=== PATIENT | female | born 1930 | race Two or more races ===

== ENCOUNTER 2020-07-22 20:41 | Inpatient (IN) | payer MEDICARE, OTHER ==
[~2020-07-22] VITALS: Ht 144.8 cm; Wt 53.5 kg
--- NOTE | 2020-07-22 20:00 | NUR ---
Received an 89 yr old female from [facility] with an admitting diagnosis of UTI, generalized weakness. Hx of DM, Anemia, HTN and left eye blind. AAOx3-4 with periods of confusion. Able to follow simple commands. Lungs CTA. VSS. Needs attended. Patient has a demarco catheter on admission draining yellow urine. Patient has hx of urinary retention. Denies any pain nor any discomfort. Patient has a stage 3 sacral wound, pinkish in color with slough along the edges.Dressing intact. Dr Craven aware of patient's admission. Wound consult ordered. Fall precautions maintained. Siderails up for safety. Needs attended. Will monitor patient.
[2020-07-22 20:30] VITALS: BP 125/53
[2020-07-22] MEDS ORDERED: Z GUARD REMEDY PASTE 57 GM TUBE TOP PRN (21:00)
[2020-07-22] MEDS ORDERED: FURO20TA4 PO (21:18)
[2020-07-22] MEDS ORDERED: AMOX500C2 PO (21:18)
[2020-07-22] MEDS ORDERED: FERR325T28 PO (21:18)
[2020-07-22] MEDS ORDERED: METF-441 PO (21:18)
[2020-07-22] MEDS ORDERED: GABA-532 PO (21:49)
[2020-07-22] MEDS ORDERED: LOSA1TAB36 PO (21:49)
[2020-07-22] MEDS ORDERED: DORZ10DR11 RIGHTEYE (21:49)
[2020-07-22] MEDS ORDERED: PRED5DRO16 OP (21:49)
[2020-07-22] MEDS ORDERED: GLIM4TAB37 PO (21:49)
[2020-07-22] MEDS ORDERED: MEGE40TA19 PO (21:49)
[2020-07-22] MEDS ORDERED: ONDA-104 PO (21:49)
[2020-07-22] MEDS ORDERED: SITA100T PO (21:49)
[2020-07-22] MEDS ORDERED: ONDANSETRON HCL 4 MG TABLET PO PRN (22:15)
[2020-07-22] MEDS ORDERED: FUROSEMIDE 20 MG TABLET PO PRN (22:15)
[2020-07-23 05:01] VITALS: BP 144/69
[2020-07-23] MEDS: AMOXIcillin 500 MG CAPSULE PO SCH ×3 (05:53→21:06)
--- NOTE | 2020-07-23 06:35 | NUR ---
End of shift notes: Slept well most of the shift.No acute distress noted. VSS. Kept comfortable.Will monitor patient. Urena draining well.
[2020-07-23 07:28] LABS: BASOPHILS % (AUTO) 0.4 % (0.0-2.0); EOSINOPHILS # (AUTO) 0.1 K/uL (0.0-0.7); EOSINOPHILS % (AUTO) 1.9 % (0.0-7.0); HEMOGLOBIN 8.6 g/dL (10.9-14.3); LYMPHOCYTES # (AUTO) 2.2 K/uL (20.0-40.0); LYMPHOCYTES % (AUTO) 27.5 % (20.5-51.5); MEAN CORPUSCULAR HEMOGLOBIN 29.6 uug (24.7-32.8); MEAN CORPUSCULAR HGB CONC 33 g/dL (32.3-35.6); MEAN CORPUSCULAR VOLUME 89.9 fL (75.5-95.3); MONOCYTES # (AUTO) 0.8 K/uL (2.0-10.0); MONOCYTES % (AUTO) 9.5 % (0.0-11.0); NEUTROPHILS # (AUTO) 4.8 K/uL (1.8-8.9); NEUTROPHILS % (AUTO) 60.7 % (38.5-71.5); PLATELET COUNT (AUTO) 221 K/uL (179-408); WHITE BLOOD COUNT (AUTO) 7.9 K/uL (3.8-11.8)
[2020-07-23] MEDS ORDERED: GLIMEPIRIDE 4 MG TABLET PO SCH (07:30)
[2020-07-23 07:33] LABS: ALANINE AMINOTRANSFERASE 11 U/L (14-59); ALKALINE PHOSPHATASE 40 U/L (50-136); ASPARTATE AMINOTRANSFERASE 11 U/L (15-37); BILIRUBIN,TOTAL 0.2 mg/dL (0.2-1.0); CARBON DIOXIDE 22 mmol/L (21-32); CHLORIDE 105 mmol/L (98-107); CREATININE 1.4 mg/dL (0.6-1.3); MAGNESIUM 2.2 mg/dL (1.8-2.4); PHOSPHOROUS 4.5 mg/dL (2.5-4.9); POTASSIUM 4.8 mmol/L (3.5-5.1); TOTAL PROTEIN, SERUM 6.4 g/dL (6.4-8.2); UREA NITROGEN, BLOOD 32 mg/dL (7-18)
[2020-07-23 07:39] LABS: GLUCOSE 42 mg/dL (74-106)
[2020-07-23 08:00] VITALS: BP 147/51
[2020-07-23] MEDS ORDERED: METFORMIN HCL 850 MG TABLET PO SCH (08:00)
[2020-07-23] MEDS: HYDROCHLOROTHIAZIDE 12.5 MG CAPSULE PO SCH (08:45)
[2020-07-23] MEDS: MEGESTROL ACETATE 20 MG TABLET PO SCH (08:46)
[2020-07-23] MEDS: LOSARTAN POTASSIUM 50 MG TABLET PO SCH (08:46)
[2020-07-23] MEDS: FERROUS SULFATE 325 MG TABEC PO SCH (08:46)
[2020-07-23] MEDS ORDERED: LINAGLIPTIN 5 MG TABLET PO SCH (09:00)
[2020-07-23] MEDS ORDERED: Medication Not On Formulary EA (Losartan/Hydrochlorothiazide (Losartan-Hctz 50-12.5 Mg T PO SCH (09:00)
[2020-07-23] MEDS: DORZOLAMIDE/TIMOLOL OPHT DROP 10 ML BOTTLE RIGHTEYE SCH ×2 (09:42→17:05)
[2020-07-23] MEDS: prednisoLONE ACET 1% OPHT DROP 5 ML BOTTLE OP SCH ×4 (10:08→21:49)
--- NOTE | 2020-07-23 10:45 | NUR ---
Patient is alert, oriented x 3, not in any form of distress, on room air. She denies any pain or discomfort. Received a call from laboratory, blood glucose is 42, patient given orange juice and started her breakfast, checked blood sugar 2x every 15min with result of 61 and 73 respectively. Needs attended to promptly. Call light and frequently used items placed within patient's reach. Informed Dr. Goodwin and said hold due DM PO medications at this time, and do accu-checks ACHS. Will continue to monitor.
[2020-07-23] MEDS: BLOOD SUGAR DIAGNOSTIC 1 EACH STRIP VI SCH ×3 (11:41→20:41)
[2020-07-23 16:00] VITALS: BP 149/61
[2020-07-23] MEDS ORDERED: HYDROCODONE/APAP 5-325MG TABLET PO PRN (20:15)
[2020-07-23 20:22] VITALS: BP 155/63
[2020-07-23] MEDS: GABAPENTIN 100 MG CAPSULE PO SCH (21:06)
[2020-07-23] MEDS: GLIMEPIRIDE 2 MG TABLET PO SCH (21:07)
--- NOTE | 2020-07-23 21:58 | NUR ---
Received pt resting in bed. AAO x3, Farsi speaking, able to make needs known. No acute distress noted. C/o moderate pain on the back. Dr. Valles made aware with new order. Pt's blood sugar is 206, notified Dr. Sarmiento with new order to restart Amaryl 1 mg PO BID starting tonight. Safety measures maintained. Call light and personal items within reach. Will continue to monitor.
--- NOTE | 2020-07-23 22:21 | NUR ---
Wound care and skin care done. Pt kept clean and comfortable. Turned and repositioned, both heels offloaded. Urena catheter draining yellow colored urine. Will continue to monitor.
[2020-07-23 23:02] LABS: THYROID STIMULATING HORMONE 0.119 mIU/mL (0.358-3.740)
[2020-07-24 04:22] VITALS: BP 129/64
[2020-07-24] MEDS: AMOXIcillin 500 MG CAPSULE PO SCH ×3 (05:45→21:00)
--- NOTE | 2020-07-24 06:08 | NUR ---
@0600 Pt's blood sugar is 51, two cups of apple juice given with packets of sugar. No s/s of hypoglycemia noted. Pt remains to be AAO x3. Will recheck again. Urena catheter removed, drained with clear yellow colored urine, with order to monitor for retention. Will continue to monitor.
[2020-07-24] MEDS: BLOOD SUGAR DIAGNOSTIC 1 EACH STRIP VI SCH ×4 (06:36→20:51)
--- NOTE | 2020-07-24 06:41 | NUR ---
Rechecked blood sugar, accucheck is now 131. Will endorse accordingly to oncoming shift.
[2020-07-24 08:00] VITALS: BP 113/54
[2020-07-24] MEDS: GLIMEPIRIDE 2 MG TABLET PO SCH ×2 (08:55→17:42)
[2020-07-24] MEDS: HYDROCHLOROTHIAZIDE 12.5 MG CAPSULE PO SCH (08:55)
[2020-07-24] MEDS: FERROUS SULFATE 325 MG TABEC PO SCH (08:56)
[2020-07-24] MEDS: MEGESTROL ACETATE 20 MG TABLET PO SCH (08:56)
[2020-07-24] MEDS: LOSARTAN POTASSIUM 50 MG TABLET PO SCH (08:56)
[2020-07-24] MEDS: DORZOLAMIDE/TIMOLOL OPHT DROP 10 ML BOTTLE RIGHTEYE SCH ×2 (08:57→17:26)
[2020-07-24] MEDS: prednisoLONE ACET 1% OPHT DROP 5 ML BOTTLE OP SCH ×4 (08:57→20:48)
--- NOTE | 2020-07-24 10:30 | NUR ---
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 Noted patient was constipated, disimpacted, large hard stools, verbalized some relief, wound care to sacrum done, site cleansed, hydrogel applied, covered with folded 4x4 , encouraged pressure relief. . No voiding noted check BVI 38 ml, .Continue with bladder training.
[2020-07-24 16:00] VITALS: BP 124/50
--- NOTE | 2020-07-24 16:00 | NUR ---
Nursing- Toileted , voided 20 ml cloudy yellow urine, BVI 188 , encouraged to drink water. Per patient P.T. taken her to the bathroom during her therapy session downstair.Denies any bladder discomfort.
[2020-07-24] MEDS: GABAPENTIN 100 MG CAPSULE PO SCH (20:51)
[2020-07-24 20:55] VITALS: BP 153/84
--- NOTE | 2020-07-24 21:01 | NUR ---
Received pt resting in bed. AAO x3, Farsi speaking, able to make needs known. No acute distress noted. Denies pain/ discomfort. Due meds given as ordered. Accucheck 175. Pt noted to void 2x on incontinence pad. Skin care and wound care rendered. Dressing on sacral wound changed. Turned and repositioned. Both heels offloaded. Safety measures maintained. Call light and personal items within reach. Will continue to monitor.
[2020-07-25 04:25] VITALS: BP 107/62
[2020-07-25] MEDS: AMOXIcillin 500 MG CAPSULE PO SCH ×2 (05:59→20:38)
--- NOTE | 2020-07-25 06:26 | NUR ---
Bladder scan 101 cc. Voided x4 throughout the shift.
[2020-07-25] MEDS: BLOOD SUGAR DIAGNOSTIC 1 EACH STRIP VI SCH ×4 (06:38→20:44)
[2020-07-25 07:08] LABS: BASOPHILS % (AUTO) 0.3 % (0.0-2.0); EOSINOPHILS # (AUTO) 0.1 K/uL (0.0-0.7); EOSINOPHILS % (AUTO) 1.6 % (0.0-7.0); HEMATOCRIT 23.6 % (31.2-41.9); HEMOGLOBIN 7.9 g/dL (10.9-14.3); LYMPHOCYTES % (AUTO) 26.3 % (20.5-51.5); MEAN CORPUSCULAR HEMOGLOBIN 30.1 uug (24.7-32.8); MEAN CORPUSCULAR HGB CONC 34 g/dL (32.3-35.6); MEAN CORPUSCULAR VOLUME 89.8 fL (75.5-95.3); MONOCYTES # (AUTO) 0.8 K/uL (2.0-10.0); MONOCYTES % (AUTO) 10.9 % (0.0-11.0); NEUTROPHILS # (AUTO) 4.5 K/uL (1.8-8.9); NEUTROPHILS % (AUTO) 60.9 % (38.5-71.5); PLATELET COUNT (AUTO) 291 K/uL (179-408); RED BLOOD CELL COUNT(AUTO) 2.63 MIL/uL (3.63-4.92); WHITE BLOOD COUNT (AUTO) 7.4 K/uL (3.8-11.8)
[2020-07-25 07:13] LABS: CARBON DIOXIDE 22 mmol/L (21-32); CHLORIDE 104 mmol/L (98-107); CREATININE 1.5 mg/dL (0.6-1.3); GLUCOSE 117 mg/dL (74-106); MAGNESIUM 1.9 mg/dL (1.8-2.4); PHOSPHOROUS 4.7 mg/dL (2.5-4.9); UREA NITROGEN, BLOOD 37 mg/dL (7-18)
[2020-07-25 07:30] VITALS: BP 125/56
[2020-07-25] MEDS: FERROUS SULFATE 325 MG TABEC PO SCH (08:38)
[2020-07-25] MEDS: HYDROCHLOROTHIAZIDE 12.5 MG CAPSULE PO SCH (08:38)
[2020-07-25] MEDS: MEGESTROL ACETATE 20 MG TABLET PO SCH (08:38)
[2020-07-25] MEDS: LOSARTAN POTASSIUM 50 MG TABLET PO SCH (08:39)
[2020-07-25] MEDS: GLIMEPIRIDE 2 MG TABLET PO SCH ×2 (08:40→16:43)
[2020-07-25] MEDS: DORZOLAMIDE/TIMOLOL OPHT DROP 10 ML BOTTLE RIGHTEYE SCH ×2 (08:40→16:39)
[2020-07-25] MEDS: prednisoLONE ACET 1% OPHT DROP 5 ML BOTTLE OP SCH ×4 (08:41→20:38)
--- NOTE | 2020-07-25 11:00 | NUR ---
Patient alert, not in any form of distress, on room air. No complain of any pain or discomfort. Due medications administered and tolerated well. Assisted patient to the bathroom to have bowel movement and to void then assisted to sit on the chair. Call light and frequently used items placed within patient's reach. Informed Dr. Snyder that patient have been voiding freely with no complaints of dysuria. Per MD discontinue bladder scan.
[2020-07-25] MEDS: GLUCERNA SHAKE VANILLA 237 ML CAN PO SCH ×2 (12:10→16:40)
--- NOTE | 2020-07-25 12:20 | NUR ---
Pt will be Min A with dressing tasks. Pt will be CGA with toileting tasks. Pt will be SBA for functional transfers. Addendum: 07/25/20 at 1221 by KENTRELL TREVINO OT Amended: Links added.
--- NOTE | 2020-07-25 12:39 | NUR ---
WOUND CARE CONSULT: PT PRESENTS WITH SACRAL STAGE 3 ULCER, PRESENT ON ADMISSION. RECOMMENDATIONS MADE FOR WOUND CARE AND SKIN PROTECTION. DISCUSSED WITH NURSING STAFF. DR ALONZO MELGOZA NOTIFIED OF SURGICAL CONSULT REQUEST. IN AGREEMENT WITH PLAN OF CARE. Addendum: 07/25/20 at 1241 by LYLA ARORA RN Amended: Links added.
[2020-07-25 16:00] VITALS: BP 128/40
--- NOTE | 2020-07-25 16:40 | NUR ---
held glucerna secondary to elevated blood sugar of 443. pt asymptomatic will notify
--- NOTE | 2020-07-25 18:10 | NUR ---
Informed Dr. Snyder regarding episodes of hyperglycemia and ordered to start on Tradjenta 5 mg daily now.
[2020-07-25] MEDS: LINAGLIPTIN 5 MG TABLET PO SCH (18:44)
[2020-07-25 20:00] VITALS: BP 100/55
[2020-07-25] MEDS ORDERED: GABAPENTIN 300 MG CAPSULE PO SCH (21:00)
[2020-07-26 04:00] VITALS: BP_SYST 106; BP_SYST 139; BP_DIAS 58; BP_DIAS 92
--- NOTE | 2020-07-26 06:08 | NUR ---
Shift End Report: Vs stable. Denies any s/s of hyperglycemia. Encouraged adequate oral fluid intake as tolerated. No complaint presented all night. Continue current rehab plan of care.
[2020-07-26] MEDS: BLOOD SUGAR DIAGNOSTIC 1 EACH STRIP VI SCH ×3 (06:30→16:55)
[2020-07-26 08:00] VITALS: BP 115/55
[2020-07-26] MEDS: GLIMEPIRIDE 2 MG TABLET PO SCH ×2 (08:23→17:21)
[2020-07-26] MEDS: MEGESTROL ACETATE 20 MG TABLET PO SCH (08:23)
[2020-07-26] MEDS: HYDROCHLOROTHIAZIDE 12.5 MG CAPSULE PO SCH (08:24)
[2020-07-26] MEDS: LINAGLIPTIN 5 MG TABLET PO SCH (08:24)
[2020-07-26] MEDS: FERROUS SULFATE 325 MG TABEC PO SCH (08:24)
[2020-07-26] MEDS: LOSARTAN POTASSIUM 50 MG TABLET PO SCH (08:24)
[2020-07-26] MEDS: prednisoLONE ACET 1% OPHT DROP 5 ML BOTTLE OP SCH ×3 (08:25→16:55)
[2020-07-26] MEDS: AMOXIcillin 500 MG CAPSULE PO SCH ×2 (08:25→20:47)
[2020-07-26] MEDS: DORZOLAMIDE/TIMOLOL OPHT DROP 10 ML BOTTLE RIGHTEYE SCH ×2 (08:25→16:56)
[2020-07-26] MEDS: GLUCERNA SHAKE VANILLA 237 ML CAN PO SCH ×2 (08:26→17:22)
[2020-07-26] MEDS ORDERED: GLUCERNA SHAKE VANILLA 237 ML CAN PO SCH (09:00)
[2020-07-26 16:05] VITALS: BP 127/65
[2020-07-26] MEDS ORDERED: LINA5TAB PO (19:26)
[2020-07-26 20:06] VITALS: BP 112/55
--- NOTE | 2020-07-26 21:00 | NUR ---
Pt discharged today. VS stable. Picked up by son Kobi. All belongings accounted for. No s/s of distress. Pt declined picture to be taken of sacral wound.
== END 2020-07-26 21:30 | disposition home or self-care (01) | DRG 689 ==
PROVIDERS: ADMIT Physical Medicine & Rehabilitation Pain Medicine; ATTEND Physical Medicine & Rehabilitation Pain Medicine
DX: N39.0 Urinary tract infection, site not specified (principal); L89.153 Pressure ulcer of sacral region, stage 3; E43 Unspecified severe protein-calorie malnutrition; G93.41 Metabolic encephalopathy; N17.0 Acute kidney failure with tubular necrosis; D68.59 Other primary thrombophilia; K56.7 Ileus, unspecified; I12.9 Hypertensive chronic kidney disease with stage 1 through stage 4 chronic kidney disease, or unspecified chronic kidney disease; N18.9 Chronic kidney disease, unspecified; E11.22 Type 2 diabetes mellitus with diabetic chronic kidney disease; D63.8 Anemia in other chronic diseases classified elsewhere; R41.82 Altered mental status, unspecified; R53.1 Weakness; D50.9 Iron deficiency anemia, unspecified; E11.649 Type 2 diabetes mellitus with hypoglycemia without coma; E11.65 Type 2 diabetes mellitus with hyperglycemia; M19.90 Unspecified osteoarthritis, unspecified site; H40.9 Unspecified glaucoma; H54.40 Blindness, one eye, unspecified eye; R19.5 Other fecal abnormalities
CPT/HCPCS: 36415; 71045; 82652; 83550; 83735; 84100; 84443; 85025; J2650

== ENCOUNTER 2020-12-23 18:42 | Inpatient (IN) | payer MEDICARE, OTHER ==
[~2020-12-23] VITALS: Ht 149.9 cm; Wt 66.7 kg
[~2020-12-23 18:42] MED LIST: DORZ10DR11 RIGHTEYE; FERR325T28 PO; FURO20TA4 PO; GABA-532 PO; GLIM4TAB37 PO; LINA5TAB PO; LOSA1TAB36 PO; MEGE40TA7 PO; ONDA-104 PO; PRED5DRO16 OP; SITA100T PO
[2020-12-24] MEDS ORDERED: Z GUARD REMEDY PASTE 57 GM TUBE TOP PRN (15:15)
[2020-12-24] MEDS ORDERED: ACET-2154 PO (15:38)
[2020-12-24] MEDS ORDERED: MAGN400O6 PO (15:38)
[2020-12-24] MEDS ORDERED: ACET1TAB23 PO (15:38)
[2020-12-24] MEDS ORDERED: ENOX40DI SQ (15:38)
[2020-12-24] MEDS ORDERED: LOSA1TAB36 PO (15:38)
[2020-12-24] MEDS ORDERED: CEFT2VIA14 IV (15:38)
[2020-12-24] MEDS ORDERED: TRAZ-182 PO (15:38)
[2020-12-24] MEDS ORDERED: ESCI10TA PO (15:38)
[2020-12-24] MEDS ORDERED: METF850T PO (15:38)
[2020-12-24] MEDS ORDERED: GLIM1TAB PO (15:38)
[2020-12-24] MEDS ORDERED: INSULIN REGULAR, HUMAN 300 UNIT/3 ML VIAL SQ PRN (15:45)
[2020-12-24] MEDS ORDERED: DEXTROSE 50% 50 ML DISP.SYRIN IV PRN (15:45)
[2020-12-24] MEDS ORDERED: NUT.237L36 PO (15:58)
[2020-12-24 16:00] VITALS: BP 105/43
[2020-12-24] MEDS ORDERED: BLOOD SUGAR DIAGNOSTIC 1 EACH STRIP VI SCH ×2 (16:30)
[2020-12-24] MEDS ORDERED: prednisoLONE ACET 1% OPHT DROP 5 ML BOTTLE OP SCH (17:00)
[2020-12-24] MEDS ORDERED: MAGNESIUM HYDROXIDE 30 ML LIQUID UDC PO SCH (17:00)
[2020-12-24] MEDS ORDERED: ONDANSETRON HCL 4 MG TABLET PO PRN (17:00)
[2020-12-24] MEDS ORDERED: FUROSEMIDE 20 MG TABLET PO PRN (17:00)
--- NOTE | 2020-12-24 17:54 | NUR ---
Admitted patient to rehab unit from [facility]. Awake, alert and oriented x3. Understands and able to speak simple Danish but speaks mostly Farsi. Patient is on 2 lpm via nasal cannula. No resp distress noted. Denies chest pain or shortness of breath. No facial grimacing noted. With demarco catheter intact and patent, draining yellow urine. No hematuria noted. Patient's son works at [employer] and is involved with her care. Patient's belongings are checked and confirmed by patient. Dr. Sarmiento aware of arrival. Patient seen by Dr. Valles already. Bed low and locked. Encouraged to use call light, placed within reach. Kept comfortable. Will continue to monitor.
[2020-12-24] MEDS: GLIMEPIRIDE 2 MG TABLET PO SCH (18:13)
[2020-12-24] MEDS: GLUCERNA 1.2 1000ML LIQUID PO SCH (18:14)
--- NOTE | 2020-12-24 18:16 | NUR ---
BS at 1800- 249 mg/dl
[2020-12-24] MEDS: CEFTRIAXONE 1 G in IV DEXTROSE 5% 50 ML IV SCH (18:38)
[2020-12-24 19:50] VITALS: BP 124/46
[2020-12-24] MEDS: METFORMIN HCL 850 MG TABLET PO SCH (20:06)
[2020-12-24] MEDS: DORZOLAMIDE/TIMOLOL OPHT DROP 10 ML BOTTLE RIGHTEYE SCH (20:07)
[2020-12-24] MEDS: BLOOD SUGAR DIAGNOSTIC 1 EACH STRIP VI SCH (20:13)
[2020-12-24] MEDS: ACIDOPHILUS/BULGARICUS CHEW TAB PO SCH (20:13)
[2020-12-24] MEDS: TRAZODONE 50 MG TABLET PO SCH (20:14)
[2020-12-24] MEDS ORDERED: GABAPENTIN 100 MG CAPSULE PO SCH (21:00)
--- NOTE | 2020-12-24 22:14 | NUR ---
Patient awake alert and able to make needs known.Farsi speaking with O2 inhalation at 2LPM via NC .No s/s of distress noted.Due meds given.Iv on Right hand patent and intact.No s/s of distress noted.Urena catheter draining well with yellow urine output. Repositioned patient. Wound care provided on sacral area. Tolerated well. Continue safety measures .Will continue to monitor.
[2020-12-25] MEDS: ACETAMINOPHEN 325 MG TABLET PO PRN (00:05)
[2020-12-25 05:21] VITALS: BP 126/54
[2020-12-25] MEDS: BLOOD SUGAR DIAGNOSTIC 1 EACH STRIP VI SCH ×4 (06:33→20:27)
[2020-12-25 06:43] LABS: BASOPHILS % (AUTO) 0.4 % (0.0-2.0); EOSINOPHILS # (AUTO) 0.1 K/uL (0.0-0.7); EOSINOPHILS % (AUTO) 1.7 % (0.0-7.0); HEMATOCRIT 28.8 % (31.2-41.9); HEMOGLOBIN 9.4 g/dL (10.9-14.3); LYMPHOCYTES % (AUTO) 28.4 % (20.5-51.5); MEAN CORPUSCULAR HEMOGLOBIN 27.2 uug (24.7-32.8); MEAN CORPUSCULAR HGB CONC 33 g/dL (32.3-35.6); MEAN CORPUSCULAR VOLUME 82.9 fL (75.5-95.3); MONOCYTES # (AUTO) 0.8 K/uL (2.0-10.0); MONOCYTES % (AUTO) 11.5 % (0.0-11.0); NEUTROPHILS # (AUTO) 4.2 K/uL (1.8-8.9); PLATELET COUNT (AUTO) 263 K/uL (179-408); RED BLOOD CELL COUNT(AUTO) 3.47 MIL/uL (3.63-4.92); WHITE BLOOD COUNT (AUTO) 7.2 K/uL (3.8-11.8)
[2020-12-25 06:56] LABS: THYROID STIMULATING HORMONE 0.242 mIU/mL (0.358-3.740)
[2020-12-25 07:19] LABS: ALANINE AMINOTRANSFERASE 9 U/L (14-59); ALKALINE PHOSPHATASE 46 U/L (50-136); ASPARTATE AMINOTRANSFERASE 8 U/L (15-37); BILIRUBIN,TOTAL 0.1 mg/dL (0.2-1.0); CARBON DIOXIDE 32 mmol/L (21-32); CHLORIDE 100 mmol/L (98-107); CHOLESTEROL 142 mg/dL (<200); CREATININE 1.5 mg/dL (0.6-1.3); GLUCOSE 107 mg/dL (74-106); HDL CHOLESTEROL 30 mg/dL (40-60); MAGNESIUM 1.7 mg/dL (1.8-2.4); PHOSPHOROUS 4.2 mg/dL (2.5-4.9); POTASSIUM 4.5 mmol/L (3.5-5.1); TRIGLYCERIDES 183 MG/DL (30-150); UREA NITROGEN, BLOOD 44 mg/dL (7-18)
[2020-12-25 07:42] LABS: BAND % (MANUAL) 3 % (0-10); EOSINOPHILS % (MANUAL) 1 % (0-8); LYMPHOCYTES % (MANUAL) 17 % (20-40); MONOCYTES % (MANUAL) 11 % (2-10); MYELOCYTES % 1 % (0-0); NEUTROPHILS % (MANUAL) 67 % (42-75)
--- NOTE | 2020-12-25 07:42 | NUR ---
Awake and responsive mostly in Farsi. No respiratory distress on 2 lpm nc. No sob noted. Denies pain. Right hand IV intact and patent. Urena catheter intact and patent draining yellow urine. No hematuria or sediments noted. Bed is low and locked. Kept comfortable. Call light in reach. Will continue to monitor.
[2020-12-25 08:01] LABS: IRON, SERUM 28 ug/dL (50-175)
[2020-12-25] MEDS: GLUCERNA 1.2 1000ML LIQUID PO SCH ×2 (08:03→17:17)
[2020-12-25] MEDS: METFORMIN HCL 850 MG TABLET PO SCH ×2 (08:03→17:16)
[2020-12-25 08:15] VITALS: BP 121/36
[2020-12-25] MEDS: ESCITALOPRAM OXALATE 10 MG TABLET PO SCH (08:29)
[2020-12-25] MEDS: ACIDOPHILUS/BULGARICUS CHEW TAB PO SCH ×2 (08:29→20:17)
[2020-12-25] MEDS: LINAGLIPTIN 5 MG TABLET PO SCH (08:29)
[2020-12-25] MEDS: FERROUS SULFATE 325 MG TABEC PO SCH (08:29)
[2020-12-25] MEDS: MEGESTROL ACETATE 20 MG TABLET PO SCH (08:29)
[2020-12-25] MEDS: GLIMEPIRIDE 2 MG TABLET PO SCH ×2 (08:29→17:16)
[2020-12-25] MEDS: PREGABALIN 25 MG CAPSULE PO SCH ×2 (08:29→17:16)
[2020-12-25] MEDS: DORZOLAMIDE/TIMOLOL OPHT DROP 10 ML BOTTLE RIGHTEYE SCH ×2 (08:30→17:17)
[2020-12-25] MEDS: ENOXAPARIN SODIUM 30 MG/0.3 ML DISP.SYRIN SQ SCH (08:31)
[2020-12-25] MEDS ORDERED: MAGNESIUM OXIDE 400 MG TABLET PO ONE (10:00)
[2020-12-25] MEDS: prednisoLONE ACET 1% OPHT DROP 5 ML BOTTLE LEFTEYE SCH (12:25)
[2020-12-25] MEDS: MAGNESIUM HYDROXIDE 30 ML LIQUID UDC PO PRN (15:11)
[2020-12-25 15:37] VITALS: BP 119/58
[2020-12-25] MEDS: CEFTRIAXONE 1 G in IV DEXTROSE 5% 50 ML IV SCH (17:49)
--- NOTE | 2020-12-25 19:16 | NUR ---
Alert and oriented, able to make needs known in simple albanian. No resp distress in 2Lm via nc spo2 97-98%. No facial grimacing. Eats very well. Family was here to visit, no complaints. Safety measures in place. Call light and cell phone in reach. Endorsed accordingly.
[2020-12-25] MEDS: TRAZODONE 50 MG TABLET PO SCH (20:18)
[2020-12-25 20:23] VITALS: BP 128/71
[2020-12-26 04:28] VITALS: BP 163/65
[2020-12-26] MEDS: ACETAMINOPHEN/CODEINE 300-30 MG TABLET PO PRN (04:55)
--- NOTE | 2020-12-26 06:31 | NUR ---
Pt slept intermittently throughout the night. C/o pain around 0430H and was given Tylenol #3, tolerated well. Denies pain or SOB at this time, on 2L NC sating at 96%. Pt had 3 bowel movements during the shift. During perineal care, Mepilex on sacrum was changed and area was cleansed with NS. Tolerated all medications given. Bed is locked and in lowest position, call light within reach. No other issues or concerns at this time, will endorse to day shift.
[2020-12-26] MEDS: BLOOD SUGAR DIAGNOSTIC 1 EACH STRIP VI SCH ×5 (06:35→23:09)
[2020-12-26 07:00] LABS: CARBON DIOXIDE 35 mmol/L (21-32); CHLORIDE 99 mmol/L (98-107); CREATININE 1.5 mg/dL (0.6-1.3); GLUCOSE 98 mg/dL (74-106); MAGNESIUM 1.8 mg/dL (1.8-2.4); POTASSIUM 4.6 mmol/L (3.5-5.1); UREA NITROGEN, BLOOD 40 mg/dL (7-18)
[2020-12-26 07:35] VITALS: BP 106/48
[2020-12-26] MEDS: LINAGLIPTIN 5 MG TABLET PO SCH (08:59)
[2020-12-26] MEDS: ACIDOPHILUS/BULGARICUS CHEW TAB PO SCH ×2 (08:59→20:47)
[2020-12-26] MEDS: GLIMEPIRIDE 2 MG TABLET PO SCH ×2 (08:59→16:39)
[2020-12-26] MEDS: FERROUS SULFATE 325 MG TABEC PO SCH (08:59)
[2020-12-26] MEDS: MEGESTROL ACETATE 20 MG TABLET PO SCH (08:59)
[2020-12-26] MEDS: ESCITALOPRAM OXALATE 10 MG TABLET PO SCH (08:59)
[2020-12-26] MEDS: DORZOLAMIDE/TIMOLOL OPHT DROP 10 ML BOTTLE RIGHTEYE SCH ×2 (09:00→16:42)
[2020-12-26] MEDS: ENOXAPARIN SODIUM 30 MG/0.3 ML DISP.SYRIN SQ SCH (09:03)
[2020-12-26] MEDS: METFORMIN HCL 850 MG TABLET PO SCH (09:05)
[2020-12-26] MEDS: GLUCERNA 1.2 1000ML LIQUID PO SCH ×2 (09:05→17:12)
[2020-12-26] MEDS: prednisoLONE ACET 1% OPHT DROP 5 ML BOTTLE LEFTEYE SCH (09:06)
[2020-12-26] MEDS: PREGABALIN 25 MG CAPSULE PO SCH ×2 (09:15→16:39)
--- NOTE | 2020-12-26 14:06 | NUR ---
WOUND CARE CONSULT: PT PRESENTS WITH STAGE 3 ULCER TO SACRUM, PRESENT ON ADMISSION. RECOMMEND SURGICAL CONSULT. DR ALONZO MELGOZA NOTIFIED OF CONSULT REQUEST. RECOMMENDATIONS MADE FOR WOUND CARE AND SKIN PROTECTION. DISCUSSED WITH NURSING STAFF. PT IS ON FIRST STEP CHRISTIANO TONEY MD IN AGREEMENT WITH PLAN OF CARE. Addendum: 12/26/20 at 1408 by LYLA ARORA RN Amended: Links added.
[2020-12-26 15:51] VITALS: BP 110/42
[2020-12-26] MEDS: METFORMIN HCL 500 MG TABLET PO SCH (17:07)
[2020-12-26] MEDS: CEFTRIAXONE 1 G in IV DEXTROSE 5% 50 ML IV SCH (17:07)
--- NOTE | 2020-12-26 18:43 | NUR ---
Informed Dr. Sarmiento regarding latest blood sugar 347 and 325 for lunch and dinner respectively and her blood sugar trend. Dr. Sarmiento ordered to increase Glimepiride AM dose to 4mg and keep the PM dose 2mg.
--- NOTE | 2020-12-26 20:00 | NUR ---
Received patient awake in bed. a/o to self, farsi speaking, but able to make simple needs known. vs wnl. No s/s of pain or discomfort. No facial grimace noted. on o2 1l nc sating 98%. On air mattress. F/c intact and patent, draining to gravity. Heplock noted to right hand #24 gauge. Bed alarm on. Call light in reach. All needs attended. Will continue to monitor and assess.
[2020-12-26 20:18] VITALS: BP 102/57
[2020-12-26] MEDS: TRAZODONE 50 MG TABLET PO SCH (20:47)
--- NOTE | 2020-12-27 02:36 | NUR ---
Patient awake in bed. very confused and disoriented, yelling at staff. When spoken to in farsi, patient is confused and saying that no one is feeding her breakfast. Unable to redirect, patient becomes easily agitated. Offered food, continues to yell at staff. bed alarm on. Will continue to monitor and assess.
[2020-12-27 04:18] VITALS: BP 144/54
[2020-12-27] MEDS: BLOOD SUGAR DIAGNOSTIC 1 EACH STRIP VI SCH ×4 (06:21→20:38)
[2020-12-27 06:38] LABS: CREATININE 1.3 mg/dL (0.6-1.3); POTASSIUM 4.9 mmol/L (3.5-5.1)
[2020-12-27] MEDS: ESCITALOPRAM OXALATE 10 MG TABLET PO SCH (09:46)
[2020-12-27] MEDS: METFORMIN HCL 500 MG TABLET PO SCH ×2 (09:46→17:01)
[2020-12-27] MEDS: ACIDOPHILUS/BULGARICUS CHEW TAB PO SCH ×2 (09:46→20:37)
[2020-12-27] MEDS: MEGESTROL ACETATE 20 MG TABLET PO SCH (09:46)
[2020-12-27] MEDS: LINAGLIPTIN 5 MG TABLET PO SCH (09:46)
[2020-12-27] MEDS: FERROUS SULFATE 325 MG TABEC PO SCH (09:46)
[2020-12-27] MEDS: PREGABALIN 25 MG CAPSULE PO SCH (09:46)
[2020-12-27] MEDS: GLUCERNA 1.2 1000ML LIQUID PO SCH (09:47)
[2020-12-27] MEDS: GLIMEPIRIDE 4 MG TABLET PO SCH (09:47)
[2020-12-27] MEDS: ENOXAPARIN SODIUM 30 MG/0.3 ML DISP.SYRIN SQ SCH (09:48)
[2020-12-27] MEDS: DORZOLAMIDE/TIMOLOL OPHT DROP 10 ML BOTTLE RIGHTEYE SCH ×2 (09:59→17:05)
[2020-12-27] MEDS: PROTEIN SUPPLEMENT (PROSTAT) 30 ML LIQUID PO SCH (10:00)
[2020-12-27] MEDS: prednisoLONE ACET 1% OPHT DROP 5 ML BOTTLE LEFTEYE SCH (10:00)
--- NOTE | 2020-12-27 13:24 | NUR ---
Patient c/o of on/off pain on the soles of her feet, yesterday it was the left and today the right. Pain comes and goes away right away. Per rehab pt is still able to ambulate. Able to move both feet. informed Dr. Panchal and he said to ask Dr. Valles but also to increase Lyrica to 50mg BID, noted and carried out. Dr. Valles made aware and waiting for reply.
--- NOTE | 2020-12-27 14:47 | NUR ---
Per mayuri Guerra to increase Lyrica to 50mg BID. Patient made aware.
--- NOTE | 2020-12-27 15:32 | NUR ---
Spoke to patient's son Kobi and given update on condition, incl medication dosage increase. He was appreciative.
[2020-12-27 16:14] VITALS: BP 139/60
[2020-12-27] MEDS: GLIMEPIRIDE 2 MG TABLET PO SCH (17:01)
[2020-12-27] MEDS: PREGABALIN 50 MG CAPSULE PO SCH (17:05)
[2020-12-27] MEDS: GLUCERNA SHAKE 237 ML CAN PO SCH (17:42)
[2020-12-27] MEDS: CEphaleXIN 250 MG CAPSULE PO SCH (18:40)
[2020-12-27] MEDS: ACETAMINOPHEN/CODEINE 300-30 MG TABLET PO PRN (18:46)
--- NOTE | 2020-12-27 19:02 | NUR ---
Alert and oriented no resp distress on 1 lpm via nc 96%. Due meds given and tolerated. Spoke to both sons today and expressed concern regarding their mom's appetite. Informed them that she is on appetite stimulant, asked Dr. Valles if he can reduce dise per sons' request but he said not at this time. Both sons made aware. Due meds given and tolerated. Wound dressing changed. No adverse reactions with atb use. Safety measures in place. Call light light in reach.
--- NOTE | 2020-12-27 19:30 | NUR ---
RECEIVED PT AWAKE, ALERT AND ORIENTEDX3. PT IN NO ACUTE DISTRESS. PT CAN MAKE HER NEEDS KNOWN. SAFETY AND COMFORT PROVIDED. WILL CONTINUE TO MONITOR.
--- NOTE | 2020-12-27 19:31 | NUR ---
INDIVIDUALIZED PLAN OF CARE
[2020-12-27] MEDS: TRAZODONE 50 MG TABLET PO SCH (20:37)
[2020-12-27 21:01] VITALS: BP 130/45
--- NOTE | 2020-12-27 22:00 | NUR ---
NOTIFY CLOCK AND WATCH ASSEMBLER REGARDING PT INSULIN 251 IF PT NEEDED INSULIN SLIDING SCALE. PER NO INSULIN SLIDING SCALE NEEDED SINCE PT IS GETTING ORAL DIABETIC MEDICATION. PT IN NO ACUTE DISTRESS. WILL CONTINUE TO MONITOR.
[2020-12-28] VITALS: BP 111/51
[2020-12-28 04:09] VITALS: BP 119/42
--- NOTE | 2020-12-28 06:21 | NUR ---
PT SLEPT INTERMITTENTLY. PT IN NO ACUTE DISTRESS. PRESCRIBED MEDICATION GIVEN AND PT TOLERATED IT WELL. PT COOPERATIVE WITH CARE. PT TURNED AND REPOSITIONED. DRESSING CHANGED. SAFETY AND COMFORT PROVIDED. ALL NEEDS ARE MET. WILL ENDORSE TO INCOMING NURSE FOR CONTINUITY OF CARE.
[2020-12-28] MEDS: BLOOD SUGAR DIAGNOSTIC 1 EACH STRIP VI SCH ×4 (06:38→20:39)
--- NOTE | 2020-12-28 07:30 | NUR ---
Received awake and responsive. No respiratory distress. On 1Lpm via nc tolerated s092 99%. No facial grimacing noted. FC intact and patent draining yellow urine. No hematuria or sediments noted. Safety measures in place. Call light in reach. Will continue to monitor.
[2020-12-28 07:35] VITALS: BP 103/58
[2020-12-28] MEDS: GLIMEPIRIDE 4 MG TABLET PO SCH (08:00)
[2020-12-28] MEDS: METFORMIN HCL 500 MG TABLET PO SCH ×2 (08:00→17:09)
[2020-12-28] MEDS: ACIDOPHILUS/BULGARICUS CHEW TAB PO SCH ×2 (08:32→20:35)
[2020-12-28] MEDS: MEGESTROL ACETATE 20 MG TABLET PO SCH (08:32)
[2020-12-28] MEDS: GLUCERNA SHAKE 237 ML CAN PO SCH ×2 (08:33→17:12)
[2020-12-28] MEDS: CEphaleXIN 250 MG CAPSULE PO SCH ×3 (08:33→17:09)
[2020-12-28] MEDS: prednisoLONE ACET 1% OPHT DROP 5 ML BOTTLE LEFTEYE SCH (08:33)
[2020-12-28] MEDS: LINAGLIPTIN 5 MG TABLET PO SCH (08:33)
[2020-12-28] MEDS: FERROUS SULFATE 325 MG TABEC PO SCH (08:33)
[2020-12-28] MEDS: PREGABALIN 50 MG CAPSULE PO SCH ×2 (08:33→17:09)
[2020-12-28] MEDS: ESCITALOPRAM OXALATE 10 MG TABLET PO SCH (08:33)
[2020-12-28] MEDS: PROTEIN SUPPLEMENT (PROSTAT) 30 ML LIQUID PO SCH (08:34)
[2020-12-28] MEDS: DORZOLAMIDE/TIMOLOL OPHT DROP 10 ML BOTTLE RIGHTEYE SCH ×2 (08:34→17:09)
[2020-12-28] MEDS: ENOXAPARIN SODIUM 30 MG/0.3 ML DISP.SYRIN SQ SCH (08:38)
--- NOTE | 2020-12-28 08:38 | NUR ---
DM Medications held due to blood sugar 77 mg/dl this am. aware.
--- NOTE | 2020-12-28 09:13 | NUR ---
Patient tolerated rehab on room air. Spo2 after walking with PT 96% RA.
--- NOTE | 2020-12-28 10:46 | NUR ---
Patient tolerating room air spo 98% but she requested for oxygen to be put on. Denies pain. Breathing even and non labored. No sob noted. Put on 0.5 Lpm via nc, spo2 noted 98%. Will continue to monitor.
[2020-12-28] MEDS: MAGNESIUM HYDROXIDE 30 ML LIQUID UDC PO PRN (11:21)
[2020-12-28 15:34] VITALS: BP 106/49
[2020-12-28] MEDS: GLIMEPIRIDE 2 MG TABLET PO SCH (17:08)
--- NOTE | 2020-12-28 19:15 | NUR ---
Sleeping but arousable to stimuli. In no acute distress. FC intact and patent, draining yellow urine. No facial grimacing noted. Wound dressing done as ordered. Bed is low and locked. Needs attended. Endorsed accordingly.
[2020-12-28 20:15] VITALS: BP 121/49
--- NOTE | 2020-12-28 20:30 | NUR ---
INTERDISCIPLINARY TEAM CONFERENCE
[2020-12-28] MEDS: TRAZODONE 50 MG TABLET PO SCH (20:36)
[2020-12-29 04:18] VITALS: BP 161/76
[2020-12-29] MEDS: BLOOD SUGAR DIAGNOSTIC 1 EACH STRIP VI SCH ×4 (05:40→20:44)
[2020-12-29 06:10] VITALS: BP 129/73
--- NOTE | 2020-12-29 06:21 | NUR ---
Shift End Report: Vs stable. Slept well. No significant event reported all night. All needs attended and met. Continue current rehab plan of care.
--- NOTE | 2020-12-29 07:30 | NUR ---
START OF SHIFT: received change of shift report, pt a/ox3, Farsi speaking, understands some Cambodian. pt has sacral wound, voids via demarco, on 0.5L O2 NC PRN. Pt ambulates with walker, IV access on right hand 24g saline lock. pt in bed resting call light within reach, on air mattress, will continue to monitor.
[2020-12-29] MEDS: FERROUS SULFATE 325 MG TABEC PO SCH (08:52)
[2020-12-29] MEDS: PREGABALIN 50 MG CAPSULE PO SCH ×2 (08:52→17:43)
[2020-12-29] MEDS: MEGESTROL ACETATE 20 MG TABLET PO SCH (08:53)
[2020-12-29] MEDS: ENOXAPARIN SODIUM 30 MG/0.3 ML DISP.SYRIN SQ SCH (08:53)
[2020-12-29] MEDS: METFORMIN HCL 500 MG TABLET PO SCH ×2 (08:53→17:43)
[2020-12-29] MEDS: ACIDOPHILUS/BULGARICUS CHEW TAB PO SCH ×2 (08:53→20:40)
[2020-12-29] MEDS: LINAGLIPTIN 5 MG TABLET PO SCH (08:53)
[2020-12-29] MEDS: ESCITALOPRAM OXALATE 10 MG TABLET PO SCH (08:54)
[2020-12-29] MEDS: CEphaleXIN 250 MG CAPSULE PO SCH ×3 (08:54→17:47)
[2020-12-29] MEDS: GLUCERNA SHAKE 237 ML CAN PO SCH ×2 (08:55→17:43)
[2020-12-29] MEDS: prednisoLONE ACET 1% OPHT DROP 5 ML BOTTLE LEFTEYE SCH (08:56)
[2020-12-29] MEDS: PROTEIN SUPPLEMENT (PROSTAT) 30 ML LIQUID PO SCH (08:57)
[2020-12-29] MEDS: DORZOLAMIDE/TIMOLOL OPHT DROP 10 ML BOTTLE RIGHTEYE SCH ×2 (08:57→17:48)
[2020-12-29] MEDS: GLIMEPIRIDE 4 MG TABLET PO SCH (08:58)
[2020-12-29 14:58] VITALS: BP 117/37
[2020-12-29] MEDS: GLIMEPIRIDE 2 MG TABLET PO SCH (17:43)
--- NOTE | 2020-12-29 18:30 | NUR ---
END OF SHIFT: pt in bed resting, healthy appetite, awake alert and oriented x4, Farsi speaking, understands Finnish. pt has wound on sacrum, dressing clean dry and intact, on 0.5L O2 NC. pt ambulates with walker with physical therapy. pt voids via demarco catheter, IV on right hand 24g saline lock. bed in low and locked position, call light within reach, will endorse to oncoming nurse.
--- NOTE | 2020-12-29 19:50 | NUR ---
Sleeping comfortably during initial rounds. No s/s of respiratory distress. Continuos O2 at 0.5L/min via NC, saturating 96% at this time. HL on RH intact, no s/s of infiltration noted. Safety measures and fall prevention maintained. Continue care as planned.
[2020-12-29 20:00] VITALS: BP 116/41
--- NOTE | 2020-12-29 20:10 | NUR ---
Visited by family friend at this time.
[2020-12-29] MEDS: TRAZODONE 50 MG TABLET PO SCH (20:40)
[2020-12-29] MEDS: ACETAMINOPHEN 325 MG TABLET PO PRN (23:15)
[2020-12-30 04:00] VITALS: BP 143/49
--- NOTE | 2020-12-30 05:50 | NUR ---
Shift End Report: Been a good night with this patient. Slept well. No complaint presented. All needs anticipated and attended. Continue current rehab plan of care.
[2020-12-30] MEDS: BLOOD SUGAR DIAGNOSTIC 1 EACH STRIP VI SCH ×4 (06:04→20:08)
[2020-12-30] MEDS: METFORMIN HCL 500 MG TABLET PO SCH ×2 (07:38→17:04)
[2020-12-30] MEDS: GLIMEPIRIDE 4 MG TABLET PO SCH (07:38)
[2020-12-30 07:50] VITALS: BP 110/55
[2020-12-30] MEDS: LINAGLIPTIN 5 MG TABLET PO SCH (08:03)
[2020-12-30] MEDS: CEphaleXIN 250 MG CAPSULE PO SCH ×3 (08:03→16:10)
[2020-12-30] MEDS: ACIDOPHILUS/BULGARICUS CHEW TAB PO SCH ×2 (08:03→20:03)
[2020-12-30] MEDS: FERROUS SULFATE 325 MG TABEC PO SCH (08:03)
[2020-12-30] MEDS: ESCITALOPRAM OXALATE 10 MG TABLET PO SCH (08:03)
[2020-12-30] MEDS: ENOXAPARIN SODIUM 30 MG/0.3 ML DISP.SYRIN SQ SCH (08:03)
[2020-12-30] MEDS: PREGABALIN 50 MG CAPSULE PO SCH ×2 (08:03→16:10)
[2020-12-30] MEDS: prednisoLONE ACET 1% OPHT DROP 5 ML BOTTLE LEFTEYE SCH (08:04)
[2020-12-30] MEDS: GLUCERNA SHAKE 237 ML CAN PO SCH ×2 (08:04→16:10)
[2020-12-30] MEDS: PROTEIN SUPPLEMENT (PROSTAT) 30 ML LIQUID PO SCH (08:04)
[2020-12-30] MEDS: DORZOLAMIDE/TIMOLOL OPHT DROP 10 ML BOTTLE RIGHTEYE SCH ×2 (08:05→16:10)
[2020-12-30 15:46] VITALS: BP 128/48
[2020-12-30] MEDS: GLIMEPIRIDE 2 MG TABLET PO SCH (16:10)
[2020-12-30] MEDS: TRAZODONE 50 MG TABLET PO SCH (20:03)
[2020-12-30 20:20] VITALS: BP 102/43
[2020-12-31 05:28] VITALS: BP 115/48
--- NOTE | 2020-12-31 06:37 | NUR ---
Pt slept throughout the night. Denies SOB or pain at this time. Had 1 bowel movement this shift. Daily weight 142.1. Sacral area cleaned and hydrogel applied, Mepilex placed on area. Glucose this morning was 62 and orange juice and pudding was given. Glucose rechecked at 0645H and went up to 98. Denies feeling dizzy. Bed is locked and in lowest position, call light within reach. No other issues or concerns at this time, will endorse to day shift.
[2020-12-31] MEDS: BLOOD SUGAR DIAGNOSTIC 1 EACH STRIP VI SCH ×4 (06:42→20:43)
[2020-12-31] MEDS: METFORMIN HCL 500 MG TABLET PO SCH ×2 (07:39→17:05)
[2020-12-31] MEDS: GLIMEPIRIDE 4 MG TABLET PO SCH (07:39)
[2020-12-31] MEDS: DORZOLAMIDE/TIMOLOL OPHT DROP 10 ML BOTTLE RIGHTEYE SCH ×2 (07:39→16:12)
[2020-12-31] MEDS: PREGABALIN 50 MG CAPSULE PO SCH ×2 (07:58→16:11)
[2020-12-31] MEDS: ACIDOPHILUS/BULGARICUS CHEW TAB PO SCH ×2 (07:58→20:23)
[2020-12-31] MEDS: FERROUS SULFATE 325 MG TABEC PO SCH (07:58)
[2020-12-31] MEDS: LINAGLIPTIN 5 MG TABLET PO SCH (07:58)
[2020-12-31] MEDS: ESCITALOPRAM OXALATE 10 MG TABLET PO SCH (07:58)
[2020-12-31] MEDS: GLUCERNA SHAKE 237 ML CAN PO SCH ×2 (07:59→16:12)
[2020-12-31] MEDS: ENOXAPARIN SODIUM 30 MG/0.3 ML DISP.SYRIN SQ SCH (07:59)
[2020-12-31 08:00] VITALS: BP 138/49
[2020-12-31] MEDS: PROTEIN SUPPLEMENT (PROSTAT) 30 ML LIQUID PO SCH (08:00)
[2020-12-31] MEDS: prednisoLONE ACET 1% OPHT DROP 5 ML BOTTLE LEFTEYE SCH (09:44)
[2020-12-31] MEDS: GLIMEPIRIDE 2 MG TABLET PO SCH (16:11)
[2020-12-31 16:29] VITALS: BP 145/40
[2020-12-31] MEDS: TRAZODONE 50 MG TABLET PO SCH (20:23)
[2020-12-31 20:32] VITALS: BP 130/46
[2021-01-01 05:12] VITALS: BP 130/49
[2021-01-01] MEDS: BLOOD SUGAR DIAGNOSTIC 1 EACH STRIP VI SCH ×4 (06:32→20:49)
--- NOTE | 2021-01-01 06:36 | NUR ---
Patient slept well. No acute distress noted.Denies pain at this time.Urena catheter leaking.Inserted new f/c fr 18.Tolerated well with clear yellow urine output.BS 45 this morning.OJ and crackers given .Bs went up to 98.Wound care provided to sacral area.Pericare done.Repositioned patient .All needs anticipated and met accordingly. Will endorse to oncoming shift.
[2021-01-01 08:00] VITALS: BP 124/52
[2021-01-01] MEDS: METFORMIN HCL 500 MG TABLET PO SCH ×2 (08:08→17:06)
[2021-01-01] MEDS: FERROUS SULFATE 325 MG TABEC PO SCH (08:08)
[2021-01-01] MEDS: ESCITALOPRAM OXALATE 10 MG TABLET PO SCH (08:08)
[2021-01-01] MEDS: ACIDOPHILUS/BULGARICUS CHEW TAB PO SCH ×2 (08:08→20:43)
[2021-01-01] MEDS: LINAGLIPTIN 5 MG TABLET PO SCH (08:08)
[2021-01-01] MEDS: DORZOLAMIDE/TIMOLOL OPHT DROP 10 ML BOTTLE RIGHTEYE SCH ×2 (08:09→16:12)
[2021-01-01] MEDS: prednisoLONE ACET 1% OPHT DROP 5 ML BOTTLE LEFTEYE SCH (08:09)
[2021-01-01] MEDS: PROTEIN SUPPLEMENT (PROSTAT) 30 ML LIQUID PO SCH (08:10)
[2021-01-01] MEDS: GLUCERNA SHAKE 237 ML CAN PO SCH ×2 (08:10→16:12)
[2021-01-01] MEDS: ENOXAPARIN SODIUM 30 MG/0.3 ML DISP.SYRIN SQ SCH (08:11)
[2021-01-01] MEDS: PREGABALIN 50 MG CAPSULE PO SCH ×2 (08:19→16:12)
[2021-01-01 15:34] VITALS: BP 152/65
[2021-01-01] MEDS: GLIMEPIRIDE 2 MG TABLET PO SCH (16:12)
[2021-01-01 20:21] VITALS: BP 123/43
[2021-01-01] MEDS: TRAZODONE 50 MG TABLET PO SCH (20:43)
[2021-01-02 04:18] VITALS: BP 119/50
[2021-01-02] MEDS: BLOOD SUGAR DIAGNOSTIC 1 EACH STRIP VI SCH ×4 (06:30→20:42)
--- NOTE | 2021-01-02 07:00 | NUR ---
received in bed sleeping, pt is axox3, Farsi speaking, understands some Kiswahili., IV access on right hand 24g saline lock. call light within reach, on air mattress, will continue to monitor.
[2021-01-02 07:45] VITALS: BP_SYST 137; BP_SYST 90; BP_DIAS 36; BP_DIAS 56
[2021-01-02] MEDS: METFORMIN HCL 500 MG TABLET PO SCH ×2 (08:10→17:11)
[2021-01-02] MEDS: DORZOLAMIDE/TIMOLOL OPHT DROP 10 ML BOTTLE RIGHTEYE SCH ×2 (08:10→16:23)
[2021-01-02] MEDS: prednisoLONE ACET 1% OPHT DROP 5 ML BOTTLE LEFTEYE SCH (08:10)
[2021-01-02] MEDS: LINAGLIPTIN 5 MG TABLET PO SCH (08:10)
[2021-01-02] MEDS: ESCITALOPRAM OXALATE 10 MG TABLET PO SCH (08:10)
[2021-01-02] MEDS: PREGABALIN 50 MG CAPSULE PO SCH ×2 (08:10→16:22)
[2021-01-02] MEDS: FERROUS SULFATE 325 MG TABEC PO SCH (08:10)
[2021-01-02] MEDS: GLUCERNA SHAKE 237 ML CAN PO SCH ×2 (08:11→16:23)
[2021-01-02] MEDS: ENOXAPARIN SODIUM 30 MG/0.3 ML DISP.SYRIN SQ SCH (08:11)
[2021-01-02] MEDS: PROTEIN SUPPLEMENT (PROSTAT) 30 ML LIQUID PO SCH (08:12)
--- NOTE | 2021-01-02 16:48 | NUR ---
dc folly catheter per md orders
[2021-01-02 17:08] VITALS: BP 117/49
--- NOTE | 2021-01-02 19:00 | NUR ---
Patient in bed alert, able to make needs known. Patient has no complain of pain, kept clean dry and comfortable, call light within reach. cont to monitor.
[2021-01-02 20:00] VITALS: BP 112/57
[2021-01-02] MEDS: TRAZODONE 50 MG TABLET PO SCH (20:39)
--- NOTE | 2021-01-02 21:40 | NUR ---
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 Patient took all belongings. Patient prescription was called and faxed to [facility] pharmacy 24 hrs in [place]. When son came in the parking, spoke to the son via phone regarding Amaryl meds, that meds need to be given during the day not at night. Son understand instructions.
[2021-01-03] MEDS ORDERED: GLIMEPIRIDE 2 MG TABLET PO SCH (09:00)
== END 2021-01-02 22:00 | disposition home health service (06) | DRG 871 ==
PROVIDERS: ADMIT Physical Medicine & Rehabilitation Pain Medicine; ATTEND Physical Medicine & Rehabilitation Pain Medicine
DX: A41.51 Sepsis due to Escherichia coli [E. coli] (principal); L89.153 Pressure ulcer of sacral region, stage 3; E43 Unspecified severe protein-calorie malnutrition; G92 Toxic encephalopathy; N17.0 Acute kidney failure with tubular necrosis; N39.0 Urinary tract infection, site not specified; D68.59 Other primary thrombophilia; N18.30 Chronic kidney disease, stage 3 unspecified; D50.9 Iron deficiency anemia, unspecified; E11.22 Type 2 diabetes mellitus with diabetic chronic kidney disease; G89.29 Other chronic pain; I12.9 Hypertensive chronic kidney disease with stage 1 through stage 4 chronic kidney disease, or unspecified chronic kidney disease; M19.90 Unspecified osteoarthritis, unspecified site; R54 Age-related physical debility; R19.5 Other fecal abnormalities; E87.8 Other disorders of electrolyte and fluid balance, not elsewhere classified; M50.10 Cervical disc disorder with radiculopathy, unspecified cervical region; M51.16 Intervertebral disc disorders with radiculopathy, lumbar region
CPT/HCPCS: 36415; 70030-TC; 83550; 83735; 84100; 84443; 85025; J0696; J1650; J1815; J2650; J3490; J7050; J7060; Z7610